=== PATIENT | male | born 1945 | race Caucasian/White ===

== ENCOUNTER → 2019-07-17 13:41 | Outpatient (BNVA) | payer MEDICARE, SELFPAY | PROVIDERS: Family Provider Nurse Practitioner Family; PCP Registered Nurse; Visit Provider Nurse Practitioner Family | DX: Z51.81 Encounter for therapeutic drug level monitoring (principal); Z79.01 Long term (current) use of anticoagulants; H11.32 Conjunctival hemorrhage, left eye | CPT/HCPCS: 85610 ==

== ENCOUNTER → 2019-09-08 11:30 | Outpatient (BNVA) | payer MEDICARE, SELFPAY | PROVIDERS: Family Provider Nurse Practitioner Family; PCP Registered Nurse; Visit Provider Registered Nurse | DX: R53.83 Other fatigue (principal); H55.09 Other forms of nystagmus; F17.210 Nicotine dependence, cigarettes, uncomplicated; E78.2 Mixed hyperlipidemia; I48.11 Longstanding persistent atrial fibrillation | CPT/HCPCS: 80053; 80061; 85025 ==

== ENCOUNTER 2019-09-12 12:20 | Outpatient (CLI) | payer MEDICARE, SELFPAY ==
--- NOTE | 2019-09-12 12:45 | USCV_ITS ---
Vinicio Martin Age: 73 Gender: M : 1945 Exam Date: 09/12/2019 12:17 Ordering Phys: Technologist: Michael Chinchilla [place] [facility] [place]ication: CAROTID STENOSIS Risk Factors: Previous Vascular Surgery: Right Brachial BP: / Left Brachial BP: / Right Left Velocity (cm/s) Spectral Plaque Velocity (cm/s) Spectral Plaque Syst/Diast Broadening Syst/Diast Broadening 100.40/9.40 Prox CCA 91.50 / 18.70 85.30/ 15.90 Mid CCA 122.80/ 20.80 64.00/ 13.80 Distal CCA 75.90 / 17.70 106.30/19.70 Prox ICA 155.00/ 44.70 89.60/ 25.10 Mid ICA 164.20/ 45.40 84.90/ 17.00 Distal ICA 152.80/ 37.30 119.90 ECA 109.20 1.05 ICA/CCA 1.34 Antegrade Vertebral Antegrade 60.10/ 11.70 cm/s 63.70/ 19.30 cm/s Tri Subclavian Tri 98.00 124.0 0 FINDINGS Moderate to heavy dense irregular plaques at the left bifurcation and the distal common carotid artery Mild to moderate heterogeneous plaques of the right bifurcation and proximal internal carotid artery Antegrade flow in the vertebral arteries bilaterally Normal Doppler flow velocities in the subclavian arteries bilaterally Intimal thickening and minimal plaques in the common carotid arteries bilaterally CONCLUSIONS Moderate to heavy dense irregular plaques at the left bifurcation and the distal common carotid arterywith velocity elevation consistent with 50-79% stenosis. Mild to moderate heterogeneous plaques of the right bifurcation and proximal internal carotid arterywith velocity elevation consistent with 16-49% stenosis. Compared to the study from 07/04/2018, there may not be a significant change . Dr Fly Ham MD [facility] (Electronically Signed) Final Date: 12 Sep 2019 18:02 S
== END 2019-09-12 12:21 | disposition home or self-care (01) ==
LOC: RAD 12:22
PROVIDERS: PCP Registered Nurse; Visit Provider Internal Medicine Cardiovascular Disease
DX: I65.23 Occlusion and stenosis of bilateral carotid arteries (principal)
CPT/HCPCS: 93880

== ENCOUNTER 2020-03-25 14:04 | Outpatient (CLI) | payer MEDICARE, SELFPAY ==
--- NOTE | 2020-03-25 14:16 | USCV_ITS ---
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 The following venous structures were evaluated: common femoral vein, profunda vein, proximal portion of the greater saphenous vein, superficial femoral vein, and the popliteal vein. In addition, the posterior tibial and peroneal trunk were evaluated. Serial compression, augmentation maneuvers, and spectral Doppler flow evaluation were performed. FINDINGS: Normal 2-D Doppler and augmentation and compressibility throughout the lower extremity venous structures. Additional imaging through the proximal calf veins also reveals no thrombus. Limited evaluation of the greater saphenous vein is patent with no thrombus. CONCLUSIONS No DVT left lower extremity. Dr. Lili Leonardo DO (Electronically Signed) Final Date: 25 March 2020 15:04 S
== END 2020-03-25 14:05 | disposition home or self-care (01) ==
LOC: RAD 14:10
PROVIDERS: PCP Registered Nurse; Visit Provider Registered Nurse
DX: I82.402 Acute embolism and thrombosis of unspecified deep veins of left lower extremity (principal)
CPT/HCPCS: 80053; 85025; 93971

== ENCOUNTER 2020-07-02 06:00 | Outpatient (CLI) | payer MEDICARE, SELFPAY | END 2020-07-02 06:01 | disposition home or self-care (01) | LOC: LAB 06-19 14:22 | PROVIDERS: PCP Registered Nurse; Visit Provider Internal Medicine Cardiovascular Disease | DX: R06.02 Shortness of breath (principal); I25.5 Ischemic cardiomyopathy; I50.33 Acute on chronic diastolic (congestive) heart failure | CPT/HCPCS: 80048; 80162; 83880 ==

== ENCOUNTER 2021-02-13 13:52 | Outpatient (CLI) | payer MEDICARE, SELFPAY ==
--- NOTE | 2021-02-13 14:15 | USCV_ITS ---
Vinicio Martin Age: 75 Gender: M : 1945 Exam Date: 02/13/2021 14:29 Ordering Phys: Fly Ham MD ([email or web address]) Technologist: Vera Albert Exam Location: [facility] – [place] Indication: ISCHEMIC CARDIOMYOPATHY BP: 130 / 70 HR: 67 Rhythm: Atrial fibrillation Technical Quality: Adequate MEASUREMENTS (Male / Female) Normal Values 2D ECHO LV Diastolic Diameter PLAX 6.0 cm 4.2 - 5.9 / 3.9 - 5.3 cm LV Systolic Diameter PLAX 4.4 cm IVS Diastolic Thickness 1.2 cm 0.6 - 1.0 / 0.6 - 0.9 cm IVS Systolic Thickness 1.7 cm LVPW Diastolic Thickness 1.9 cm 0.6 - 1.0 / 0.6 - 0.9 cm LVPW Systolic Thickness 2.3 cm LVOT Diameter 2.0 cm LV Ejection Fraction 2D Teich 51.1 % LV Ejection Fraction MOD 2C 54.9 % LV Ejection Fraction 2C AL 53.8 % LA Diameter 3.7 cm LA Width 5.1 cm LA Height 4.5 cm RA Width 4.6 cm RA Height 5.6 cm Aorta at Sinotubular Diameter 2.7 cm M-MODE Aortic Annulus Diameter 2.8 cm LA Ao Ratio MM 1.0 DOPPLER AV Peak Velocity 118.0 cm/s LVOT Peak Velocity 87.0 cm/s AV Area Cont Eq vti 2.2 cm squared AV Area Cont Eq pk 2.3 cm squared MV Peak Velocity 194.0 cm/s MV Area PHT 2.2 cm squared MV E' Velocity 176.0 cm/s TR Peak Velocity 239.3 cm/s TR Peak Gradient 22.9 mmHg TR Mean Velocity 182.0 cm/s TR Mean Gradient 14.6 mmHg TR Velocity Time Integral 56.5 cm TV Peak E Velocity 59.0 cm/s PV Peak Velocity 84.0 cm/s FINDINGS Left Ventricle Normal LV size with diffuse hypokinesia of the left ventricle.abnormal (paradoxical) septal motion consistent with postoperative status.Abnormal septal motion consistent with pacemaker. LV ejection fraction around 45%(visual) Right Ventricle Normal right ventricular systolic function. Normal right ventricular size. Right Atrium Moderately increased right atrial size. Pacemaker wire in the right atrium and right ventricle Left Atrium Moderately increased left atrial size. Mitral Valve Mechanical valve at the mitral position appears to be well- seated. Aortic Valve No gross abnormalities noted Tricuspid Valve Trace to mild tricuspid valve regurgitation. Pulmonic Valve Mild pulmonary valve regurgitation. Pericardium Normal pericardium without effusion. Aorta Normal ascending aorta dimension. CONCLUSIONS Normal LV size with diffuse hypokinesia of the left ventricle.abnormal (paradoxical) septal motion consistent with postoperative status. Abnormal septal motion consistent with pacemaker. Moderate biatrial enlargement. Pacemaker wire in the right atrium and right ventricle Mechanical valve at the mitral position appears to be well- seated. The mitral area by pressure half-time was 2.2 cm2 Trace to mild tricuspid valve regurgitation. There is no pericardial effusion. There are no intracardiac masses. Possibly normal PA pressure Mild pulmonary valve regurgitation. Compared to the study from a 01/12/2017, there is significant improvement in the LV ejection fraction from 30% to 45% Dr Fly Ham MD [facility] (Electronically Signed) Final Date: 13 February 2021 22:24 S
--- NOTE | 2021-02-13 15:00 | USCV_ITS ---
Vinicio Martin Age: 75 Gender: M : 1945 Exam Date: 02/13/2021 14:13 Ordering Phys: Fly Ham MD ([email or web address] Technologist: LINUS Exam Location: [facility] [place] Indication: DISORDER OF ARTERIES Risk Factors: Previous Vascular Surgery: Right Brachial BP: / Left Brachial BP: / Right Left Velocity (cm/s) Spectral Plaque Velocity (cm/s) Spectral Plaque Syst/Diast Broadening Syst/Diast Broadening 90.40/ 16.50 Prox CCA 87.10 / 11.00 83.80/ 20.90 Mid CCA 78.30 / 19.80 64.90/ 18.80 Distal CCA 88.20 / 18.70 103.40/39.30 Prox ICA 144.60/ 44.70 107.80/39.40 Mid ICA 161.70/ 32.90 101.20/28.90 Distal ICA 94.80 / 37.60 88.00 ECA 88.00 1.19 ICA/CCA 1.83 Antegrade Vertebral Antegrade 61.40/ 17.10 cm/s 81.20/ 26.50 cm/s Tri Subclavian Tri 243.3 262.0 0 0 FINDINGS Mild to moderate diffuse scattered plaques in the common carotid arteries on both sides. Moderate heterogeneous plaques at the right bifurcation and proximal internal carotid artery Moderate to heavy heterogeneous plaques of the left bifurcation and proximal internal carotid artery Antegrade flow in the vertebral arteries bilaterally. CONCLUSIONS Moderate to heavy heterogeneous plaques at the left bifurcation and proximal internal carotid artery with the Doppler features, suggestive of 50 to 69% stenosis. Moderate heterogeneous plaques at the right bifurcation and proximal internal carotid artery with the Doppler features, consistent with less than 50% stenosis. Elevated velocities in the subclavian arteries bilaterally, possibly related to tortuosity. Cannot exclude hemodynamically significant stenosis. Consider CT angiogram of the aortic arch vessels to better evaluate the subclavian arteries Compared to the study from a 09/12/2019, there is significant increase in the subclavian artery Doppler velocities . Dr Fly Ham MD [facility] (Electronically Signed) Final Date: 13 February 2021 22:08 S
== END 2021-02-13 13:53 | disposition home or self-care (01) ==
LOC: US 13:54
PROVIDERS: PCP Registered Nurse; Visit Provider Internal Medicine Cardiovascular Disease
DX: I25.5 Ischemic cardiomyopathy (principal); I77.9 Disorder of arteries and arterioles, unspecified; I65.23 Occlusion and stenosis of bilateral carotid arteries; Z95.0 Presence of cardiac pacemaker; I07.1 Rheumatic tricuspid insufficiency
CPT/HCPCS: 93306; 93880

== ENCOUNTER 2021-03-06 13:36 | Outpatient (CLI) | payer MEDICARE, SELFPAY ==
--- NOTE | 2021-03-06 14:00 | CT_ITS ---
WS: [id number] CTA THORACIC AORTA WITH AND WITHOUT CONTRAST. HISTORY: I65.23 - Occlusion and stenosis of bilateral carotid arteries. TECHNIQUE: CT imaging of the thorax is performed with and without contrast. After noncontrast imaging is performed, CT angiogram is performed during injection of Visipaque 320; 95 mL IV.. Sagittal and c oronal reconstructions, sagittal and coronal MIP imaging is submitted. All CT scans at [facility] use at least one of these dose optimization techniques: automated exposure control; mA and/or kV adjustment per patient size (includes targeted exams where dose is matched to clinical indication); or iterative reconstruction. DLP: 1572.57 mGycm COMPARISON: Ultrasound 02/13/2021 Good opacification of the thoracic aorta. There is heavy calcification throughout the thoracic aorta with no aneurysm. Calcified and soft plaque. No dissection. No ulcerating plaque. Moderate calcificat ion at the origin of the great vessels. There is dense calcified plaque at the innominate. The RIGHT subclavian artery is tortuous and does contain plaque but no high-grade stenosis. Calcified plaque an d intimal thickening at the origin and proximal LEFT subclavian artery. Stenosis is never greater deandre n 50%. Calcified plaque at the origin of the LEFT carotid artery with stenosis probably 50%. Mildly enlarged pulmonary artery. Severe enlargement of all 4 chambers of the heart. No pericardial o r pleural effusions. Marked emphysema. Benign granuloma RIGHT lower lobe. No mediastinal or hilar coni nopathy. There is mixed filling of the pulmonary arteries but this may be due to the phase of enhance ment. Small distal pulmonary emboli not excluded. Bilateral cortical thinning of each kidney. More significant atrophy of the LEFT kidney. Heavy calcif ication involving the proximal LEFT renal artery. Cholelithiasis without acute cholecystitis. CT/CT angio chest 62527 IMPRESSION: 1. Mixture of calcified and noncalcified plaque involving the subclavian arter ies bilaterally but the stenosis is not greater than 50%. 2. 50% stenosis involving the origin of the LEFT common carotid artery. 3. Extensive calcified plaque throughout the aorta. 4. Moderate atrophy LEFT kidney with heavy calcification in the proximal renal artery. 5. Emphysema. 6. Severe cardiomegaly.
[2021-03-06 14:12] LABS: Blood Urea Nitrogen 21 mg/dL (8-23)
[2021-03-06] MEDS: iodixanol 320 mg/mL 100mL Btl IV (14:33)
== END 2021-03-06 13:37 | disposition home or self-care (01) ==
PROVIDERS: PCP Registered Nurse; Visit Provider Internal Medicine Cardiovascular Disease
DX: I65.23 Occlusion and stenosis of bilateral carotid arteries (principal); I51.7 Cardiomegaly; J43.9 Emphysema, unspecified; N26.1 Atrophy of kidney (terminal); I70.0 Atherosclerosis of aorta
CPT/HCPCS: 71275; 82565; 84520; Q9967

== ENCOUNTER → 2021-11-18 14:05 | Outpatient (BNVA) | payer MEDICARE, SELFPAY | PROVIDERS: PCP Registered Nurse; Visit Provider Registered Nurse | DX: M54.32 Sciatica, left side (principal); R10.30 Lower abdominal pain, unspecified | CPT/HCPCS: 81000 ==

== ENCOUNTER 2021-11-25 15:27 | Outpatient (CLI) | payer MEDICARE, SELFPAY ==
--- NOTE | 2021-11-25 09:49 | MR_ITS ---
WS: [id number] MRI LUMBAR SPINE NONCONTRAST TECHNIQUE: Sagittal T1, T2 and STIR imaging. Axial T1 imaging. Images are limited by motion artifact. Patient difficulty with holding still. Axial T2 imaging was not obtained. CLINICAL INFORMATION: M54.30 - Sciatica, unspecified side COMPARISON: CT 2016 FINDINGS: Mild lumbar curve. No acute compression. Mild central canal stenosis in the cervical spine supply specialist imaging at C3-C5. Prior interbody fusion C6-C 7. RIGHT foraminal protrusion T2-T3 partially evaluated on the supply specialist imaging. L1-L2: Mild annular bulging. Mild central canal stenosis. Narrowing of the RIGHT subarticular recess. Mild facet arthropathy. Moderate RIGHT foraminal narrowing. L2-L3: Mild annular bulging. Mild facet arthropathy. Mild central canal stenosis. LEFT foraminal prot rusion with mild LEFT foraminal narrowing. L3-L4: Mild disc osteophytic ridging. Moderate central canal stenosis with prominent epidural fat. Na rrowing of the cauda equina with moderate facet arthropathy. Mild bilateral foraminal narrowing. L4-L5: Disc herniation posterior to the L4 vertebral body eccentric to the LEFT. LEFT foraminal protr usion impinges the exiting L4 nerve root with severe LEFT foraminal narrowing. RIGHT foramen is paten t. Moderate facet arthropathy. L5-S1: Mild annular bulging. Moderate facet arthropathy. Spinal canal and foramen are patent. Small R IGHT L5-S1 effusion. Visualized pelvic bony structures: Normal. Paravertebral soft tissues: Normal. MR/MR lumbar spine wo con* [id number] IMPRESSION: Incomplete examination described above. Images limited due to motio n artifact. 1. Mild lumbar curve. No acute compression. 2. Moderate central canal stenosis L3-L4 due to disc bulging with facet arthro damian and prominent epidural fat. Narrowing of the cauda equina at this level. 3. Moderate central canal stenosis L4-L5 and Mild central canal stenosis L2-L3 due to mild disc bulging with facet arthropathy ligamentum flavum hypertrophy. 4. Severe LEFT L4-L5 foraminal narrowing with LEFT foraminal protrusion. Disc herniation extends posterior to the L4 vertebral body eccentric to the LEFT. 5. RIGHT foraminal protrusion L1-L2 with moderate RIGHT foraminal narrowing. 6. Small LEFT foraminal protrusion L2-L3 with mild LEFT foraminal narrowing. 7. Mild central canal stenosis in the cervical spine supply specialist imaging at C3-C5. P rior interbody fusion C6-C7. RIGHT foraminal protrusion T2-T3 partially evaluat ed on the supply specialist imaging. This can be further evaluated with cervical spine MRI.
--- NOTE | 2021-11-25 16:00 | MR_ITS ---
WS: [email or web address] MRI LUMBAR SPINE NONCONTRAST TECHNIQUE: Sagittal T1, T2 and STIR imaging. Axial T1 imaging. Images are limited by motion artifact. Patient difficulty with holding still. Axial T2 imaging was not obtained. CLINICAL INFORMATION: M54.30 - Sciatica, unspecified side COMPARISON: CT 2016 FINDINGS: Mild lumbar curve. No acute compression. Mild central canal stenosis in the cervical spine resident associate imaging at C3-C5. Prior interbody fusion C6-C 7. RIGHT foraminal protrusion T2-T3 partially evaluated on the resident associate imaging. L1-L2: Mild annular bulging. Mild central canal stenosis. Narrowing of the RIGHT subarticular recess. Mild facet arthropathy. Moderate RIGHT foraminal narrowing. L2-L3: Mild annular bulging. Mild facet arthropathy. Mild central canal stenosis. LEFT foraminal prot rusion with mild LEFT foraminal narrowing. L3-L4: Mild disc osteophytic ridging. Moderate central canal stenosis with prominent epidural fat. Na rrowing of the cauda equina with moderate facet arthropathy. Mild bilateral foraminal narrowing. L4-L5: Disc herniation posterior to the L4 vertebral body eccentric to the LEFT. LEFT foraminal protr usion impinges the exiting L4 nerve root with severe LEFT foraminal narrowing. RIGHT foramen is paten t. Moderate facet arthropathy. L5-S1: Mild annular bulging. Moderate facet arthropathy. Spinal canal and foramen are patent. Small R IGHT L5-S1 effusion. Visualized pelvic bony structures: Normal. Paravertebral soft tissues: Normal.
== END 2021-11-25 15:28 | disposition home or self-care (01) ==
LOC: RAD 15:28
PROVIDERS: PCP Registered Nurse; Visit Provider Nurse Practitioner Family
DX: M54.30 Sciatica, unspecified side (principal); M48.061 Spinal stenosis, lumbar region without neurogenic claudication; M51.26 Other intervertebral disc displacement, lumbar region; M48.02 Spinal stenosis, cervical region
CPT/HCPCS: 72148; 72149; A9577

== ENCOUNTER → 2021-12-11 08:59 | Outpatient (BNVA) | payer MEDICARE, SELFPAY | PROVIDERS: PCP Registered Nurse; Visit Provider Orthopaedic Surgery | DX: M48.062 Spinal stenosis, lumbar region with neurogenic claudication (principal); M81.0 Age-related osteoporosis without current pathological fracture; M47.816 Spondylosis without myelopathy or radiculopathy, lumbar region | CPT/HCPCS: 72110; 99204 ==

== ENCOUNTER → 2022-01-06 08:51 | Outpatient (BNVA) | payer MEDICARE, SELFPAY | PROVIDERS: PCP Registered Nurse; Visit Provider Anesthesiology Pain Medicine | DX: M48.062 Spinal stenosis, lumbar region with neurogenic claudication (principal); M51.26 Other intervertebral disc displacement, lumbar region; M54.32 Sciatica, left side; M47.816 Spondylosis without myelopathy or radiculopathy, lumbar region; M79.604 Pain in right leg; M79.605 Pain in left leg; F17.200 Nicotine dependence, unspecified, uncomplicated | CPT/HCPCS: 99204 ==

== ENCOUNTER → 2022-01-08 09:39 | Outpatient (BNVA) | payer MEDICARE, SELFPAY | PROVIDERS: PCP Registered Nurse; Visit Provider Nurse Practitioner Family | DX: I25.5 Ischemic cardiomyopathy (principal); I48.11 Longstanding persistent atrial fibrillation; J43.9 Emphysema, unspecified | CPT/HCPCS: 80053; 83880; 85025 ==

== ENCOUNTER → 2022-01-28 11:45 | Outpatient (BNVA) | payer MEDICARE, SELFPAY | PROVIDERS: PCP Registered Nurse; Visit Provider Internal Medicine Cardiovascular Disease | DX: I65.23 Occlusion and stenosis of bilateral carotid arteries (principal); R06.02 Shortness of breath; I25.5 Ischemic cardiomyopathy; F17.200 Nicotine dependence, unspecified, uncomplicated | CPT/HCPCS: 36415; 80048; 83880; 99214 ==

== ENCOUNTER → 2022-02-11 10:51 | Outpatient (BNVA) | payer MEDICARE, SELFPAY | PROVIDERS: PCP Registered Nurse; Visit Provider Nurse Practitioner Family | DX: I25.5 Ischemic cardiomyopathy (principal); F17.200 Nicotine dependence, unspecified, uncomplicated; I10 Essential (primary) hypertension | CPT/HCPCS: 99214 ==

== ENCOUNTER 2022-03-19 14:56 | Outpatient (CLI) | payer MEDICARE, SELFPAY ==
--- NOTE | 2022-03-19 15:15 | USCV_ITS ---
Vinicio Martin Age: 76 Gender: M : 1945 Exam Date: 03/19/2022 15:24 Ordering Phys: Fly Ham MD ([email or web address] [place]) Technologist: Michael Chinchilla [place]am [place] [facility] [place]: carotid occlusion Risk Factors: Previous Vascular Surgery: Right Brachial BP: / Left Brachial BP: / Right Left Velocity (cm/s) Spectral Plaque Velocity (cm/s) Spectral Plaque Syst/Diast Broadening Syst/Diast Broadening 95.50/ 15.80 Prox CCA 59.70 / 11.20 60.10/ 13.10 Mid CCA 63.60 / 11.70 62.40/ 12.50 Distal CCA 82.00 / 23.10 149.10/40.40 Prox ICA 172.90/ 40.65 144.50/46.60 Mid ICA 155.10/ 28.90 80.80/ 24.90 Distal ICA 132.30/ 40.80 94.00 ECA 79.50 2.41 ICA/CCA 2.44 Antegrade Vertebral Antegrade 57.50/ 9.30 cm/s 66.40/ 16.40 cm/s Tri Subclavian Tri 153.8 70.70 0 FINDINGS comp 02/06 CONCLUSIONS Right ICA stenosis 50-69% progressed compared to previous.mild atheromatous plaque right carotid bulb/ICA. Left ICA stenosis 50-69% progressed. Moderate atheromatous plaque left carotid bulb/ICA. Normal antegrade Doppler flow noted in the right vertebral artery. Normal antegrade Doppler flow noted in the left vertebral artery. Devon Mann MD (Electronically Signed) Final Date: 19 March 2022 17:08 S
== END 2022-03-19 14:57 | disposition home or self-care (01) ==
LOC: RAD 14:56
PROVIDERS: PCP Registered Nurse; Visit Provider Internal Medicine Cardiovascular Disease
DX: I65.23 Occlusion and stenosis of bilateral carotid arteries (principal); I77.9 Disorder of arteries and arterioles, unspecified
CPT/HCPCS: 93880

== ENCOUNTER → 2022-05-14 12:58 | Outpatient (BNVA) | payer MEDICARE, SELFPAY | PROVIDERS: PCP Registered Nurse; Visit Provider Nurse Practitioner Family | DX: I25.5 Ischemic cardiomyopathy (principal); I48.11 Longstanding persistent atrial fibrillation; Z79.01 Long term (current) use of anticoagulants; I10 Essential (primary) hypertension; I65.23 Occlusion and stenosis of bilateral carotid arteries; F17.200 Nicotine dependence, unspecified, uncomplicated | CPT/HCPCS: 36415; 80048; 83880; 99214 ==

== ENCOUNTER → 2022-11-19 11:28 | Outpatient (BNVA) | payer MEDICARE, SELFPAY | PROVIDERS: PCP Registered Nurse; Visit Provider Internal Medicine Cardiovascular Disease | DX: I25.5 Ischemic cardiomyopathy (principal); Z95.3 Presence of xenogenic heart valve; I48.11 Longstanding persistent atrial fibrillation; I10 Essential (primary) hypertension; E78.2 Mixed hyperlipidemia; I65.23 Occlusion and stenosis of bilateral carotid arteries; F17.200 Nicotine dependence, unspecified, uncomplicated; Z79.01 Long term (current) use of anticoagulants | CPT/HCPCS: 99214 ==

== ENCOUNTER → 2023-06-08 09:51 | Outpatient (BNVA) | payer MEDICARE, SELFPAY | PROVIDERS: PCP Registered Nurse; Visit Provider Nurse Practitioner Family | DX: I10 Essential (primary) hypertension (principal); I48.11 Longstanding persistent atrial fibrillation; Z95.3 Presence of xenogenic heart valve; F17.200 Nicotine dependence, unspecified, uncomplicated; Z79.01 Long term (current) use of anticoagulants | CPT/HCPCS: 99214 ==

== ENCOUNTER → 2024-01-10 14:28 | Outpatient (BNVA) | payer MEDICARE, SELFPAY | PROVIDERS: PCP Registered Nurse; Visit Provider Registered Nurse | DX: E78.5 Hyperlipidemia, unspecified (principal); I10 Essential (primary) hypertension | CPT/HCPCS: 80053; 80061; 85025 ==

== ENCOUNTER → 2024-01-20 14:15 | Outpatient (BNVA) | payer MEDICARE, SELFPAY | PROVIDERS: PCP Registered Nurse; Visit Provider Internal Medicine Cardiovascular Disease | DX: I25.5 Ischemic cardiomyopathy (principal); I65.23 Occlusion and stenosis of bilateral carotid arteries; E78.2 Mixed hyperlipidemia; I10 Essential (primary) hypertension; I48.11 Longstanding persistent atrial fibrillation; F17.210 Nicotine dependence, cigarettes, uncomplicated; Z95.3 Presence of xenogenic heart valve; Z79.01 Long term (current) use of anticoagulants | CPT/HCPCS: 99214 ==

== ENCOUNTER 2024-02-23 06:15 | Outpatient (CLI) | payer MEDICARE, SELFPAY ==
--- NOTE | 2024-02-23 06:15 | USCV_ITS ---
Vinicio Martin Age: 78 Gender: M : 1945 Exam Date: 02/23/2024 06:39 Ordering Phys: Fly Ham MD ([email or web address]) Technologist: [place]am [place] [facility] [place] Indication: mv pros BP: 130 / 80 HR: 74 Rhythm: Sinus Technical Quality: MEASUREMENTS (Male / Female) Normal Values 2D ECHO LVOT Diameter 2.3 cm LV Ejection Fraction MOD 4C 45.3 % LV Ejection Fraction MOD 2C 39.6 % LV Ejection Fraction 2C AL 38.3 % LA Diameter 6.0 cm RA Systolic Volume 4C AL 205.7 ml RA Systolic Volume 4C MOD 205.8 ml Aorta at Sinotubular Diameter 2.9 cm IVC Diameter 3.1 cm DOPPLER AV Peak Velocity 103.0 cm/s LVOT Peak Velocity 53.0 cm/s AV Area Cont Eq vti 2.8 cm squared AV Area Cont Eq pk 2.2 cm squared MV Peak Velocity 221.0 cm/s MV Area PHT 2.6 cm squared Mitral E to A Ratio 3.5 TV Peak Velocity 328.0 cm/s TR Peak Velocity 460.0 cm/s TR Peak Gradient 84.6 mmHg TV Peak E Velocity 131.0 cm/s Right Atrial Pressure 3.0 mmHg Pulmonary Artery Systolic Pressu 87.6 mmHg PV Peak Velocity 102.0 cm/s FINDINGS Left Ventricle Mild to moderate diffuse hypokinesia of the left ventricle with an ejection fraction of 40%. 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 Mitral valve area by pressure half-time was calculated to be 2.55 cm squared Aortic Valve Mild aortic valve regurgitation. Tricuspid Valve Mild tricuspid regurgitation. Severe pulm hypertension with an estimated pulmonary artery peak systolic pressure of 88 mmHg Pulmonic Valve Moderate pulmonary valve regurgitation. Pericardium Normal pericardium without effusion. Aorta Normal ascending aorta dimension. IVC Dilated IVC with decreased respiratory variation. CONCLUSIONS Mild to moderate diffuse hypokinesia of the left ventricle with an ejection fraction of 40%. Normal RV size with a slightly diminished ejection fraction. Moderate dilated left atrium. Mildly dilated right atrium. 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 Mitral valve area by pressure half-time was calculated to be 2.55 cm squared. Mild aortic valve regurgitation. Mild tricuspid regurgitation. Severe pulm hypertension with an estimated pulmonary artery peak systolic pressure of 88 mmHg. Moderate pulmonary valve regurgitation. There is no pericardial effusion. There are no intracardiac masses. Compared to the study from 02/13/2021 the severe pulmonary hypertension appears to be new. Because of the technical difficulties, this could be misleading. The tricuspid Doppler study need to be repeated Dr Fly Ham MD [facility] (Electronically Signed) Final Date: 27 February 2024 13:27 S
--- NOTE | 2024-02-23 06:31 | USCV_ITS ---
Vinicio Martin Age: 78 Gender: M : 1945 Exam Date: 02/23/2024 06:53 Ordering Phys: Fly Ham MD ([email or web address]) Technologist: Exam Location: [facility] – [place] Indication: cca disease Risk Factors: Previous Vascular Surgery: Right Brachial BP: / Left Brachial BP: / Right Left Velocity (cm/s) Spectral Plaque Velocity (cm/s) Spectral Plaque Syst/Diast Broadening Syst/Diast Broadening 51.60/ 10.20 Prox CCA 101.30/ 29.20 61.90/ 11.50 Mid CCA 97.70 / 29.10 79.70/ 19.20 Hetro Distal CCA 80.90 / 24.70 Hetro 142.20/28.30 Hetro Prox ICA 79.10 / 15.50 Hetro 100.60/15.10 Hetro Mid ICA 76.00 / 14.00 Hetro 85.20/ 19.50 Distal ICA 164.10/ 34.80 130.50 ECA 113.20 1.80 ICA/CCA 2.00 Antegrade Vertebral Antegrade 45.50/ 4.90 cm/s 76.50/ 12.90 cm/s Bi Subclavian Bi 140.0 170.7 0 0 FINDINGS Moderate dense irregular plaques at the bifurcation on the right side and proximal internal carotid artery Mild to moderate plaques of the left bifurcation proximal internal carotid artery. Antegrade flow in the vertebral arteries bilaterally. Normal flow velocities in the external carotid, subclavian and vertebral arteries bilaterally CONCLUSIONS Moderate dense irregular plaques at the bifurcation on the right side and proximal internal carotid artery with the Doppler features suggesting 50 to 69% stenosis Mild to moderate plaques at the left bifurcation proximal internal carotid artery with Doppler features suggesting less than 50% stenosis. Compared to the study from 03/19/2022 the stenosis on the left side appears to be less severe . Dr Fly Ham MD [facility] (Electronically Signed) Final Date: 27 February 2024 16:37 S
== END 2024-02-23 06:16 | disposition home or self-care (01) ==
PROVIDERS: PCP Registered Nurse; Visit Provider Internal Medicine Cardiovascular Disease
DX: I65.23 Occlusion and stenosis of bilateral carotid arteries (principal); I27.0 Primary pulmonary hypertension; I37.1 Nonrheumatic pulmonary valve insufficiency; I51.7 Cardiomegaly; R06.09 Other forms of dyspnea; Z95.2 Presence of prosthetic heart valve
CPT/HCPCS: 93306; 93880

== ENCOUNTER → 2024-04-04 11:05 | Outpatient (BNVA) | payer MEDICARE, SELFPAY | PROVIDERS: PCP Registered Nurse; Visit Provider Registered Nurse | DX: E11.9 Type 2 diabetes mellitus without complications (principal); I10 Essential (primary) hypertension | CPT/HCPCS: 80048; 80061; 85025 ==

== ENCOUNTER → 2024-08-22 09:57 | Outpatient (BNVA) | payer MEDICARE, SELFPAY | PROVIDERS: PCP Registered Nurse; Visit Provider Internal Medicine Cardiovascular Disease | DX: I48.11 Longstanding persistent atrial fibrillation (principal); Z79.01 Long term (current) use of anticoagulants; I65.23 Occlusion and stenosis of bilateral carotid arteries; I25.5 Ischemic cardiomyopathy; E78.2 Mixed hyperlipidemia; I10 Essential (primary) hypertension; I27.20 Pulmonary hypertension, unspecified; Z95.2 Presence of prosthetic heart valve; F17.210 Nicotine dependence, cigarettes, uncomplicated; R06.09 Other forms of dyspnea | CPT/HCPCS: 99214 ==

== ENCOUNTER → 2024-10-31 08:51 | Outpatient (BNVA) | payer MEDICARE, SELFPAY | PROVIDERS: PCP Registered Nurse; Visit Provider Registered Nurse | DX: I48.11 Longstanding persistent atrial fibrillation (principal) | CPT/HCPCS: 85610 ==

== ENCOUNTER 2025-02-19 13:04 | Outpatient (CLI) | payer MEDICARE, SELFPAY ==
--- NOTE | 2025-02-19 12:45 | USCV_ITS ---
Vinicio Martin Age: 79 Gender: M : 1945 Exam Date: 02/19/2025 13:08 Ordering Phys: Fly Ham MD ([email or web address]/[facility]) Technologist: EMANUEL [place] [facility] [place]: stenosis Risk Factors: Previous Vascular Surgery: Right Brachial BP: / Left Brachial BP: / Right Left Velocity (cm/s) Spectral Plaque Velocity (cm/s) Spectral Plaque Syst/Diast Broadening Syst/Diast Broadening 71.10/ 11.50 Prox CCA 75.80 / 14.30 75.00/ 15.40 Mid CCA 97.50 / 15.00 64.50/ 7.60 Distal CCA 90.50 / 20.70 141.00/35.80 Prox ICA 174.90/ 41.00 30.10/ 5.90 Mid ICA 91.00 / 13.10 63.30/ 13.90 Distal ICA 83.90 / 27.30 62.30 ECA 59.60 2.20 ICA/CCA 1.90 Antegrade Vertebral Antegrade 33.30/ 6.50 cm/s 72.70/ 16.70 cm/s Tri Subclavian Tri 86.30 198.9 0 FINDINGS comp 02/23/24 CONCLUSIONS Right ICA stenosis 50-69% is stable. Moderate atheromatous plaque right carotid bulb/ICA. Left ICA stenosis 50-69% has progressed. Moderate calcified atheromatous plaque left carotid bulb/ICA. Normal antegrade Doppler flow noted in the right vertebral artery. Normal antegrade Doppler flow noted in the left vertebral artery. Devon Mann MD (Electronically Signed) Final Date: 19 February 2025 13:38 S
--- NOTE | 2025-02-19 13:30 | USCV_ITS ---
Vinicio Martin Age: 79 Gender: M : 1945 Exam Date: 02/19/2025 13:37 Ordering Phys: Fly Ham MD ([email or web address]) Technologist: [place] [facility] [place]: mv pros BP: 125 / 70 HR: 82 Rhythm: Sinus Technical Quality: Adequate MEASUREMENTS (Male / Female) Normal Values 2D ECHO LV Diastolic Diameter PLAX 4.5 cm 4.2 - 5.9 / 3.9 - 5.3 cm IVS Diastolic Thickness 1.3 cm 0.6 - 1.0 / 0.6 - 0.9 cm IVS Systolic Thickness 1.8 cm LVPW Diastolic Thickness 1.4 cm 0.6 - 1.0 / 0.6 - 0.9 cm LVPW Systolic Thickness 1.9 cm LVOT Diameter 2.1 cm LV Ejection Fraction 2D Teich 56.9 % LV Ejection Fraction MOD 4C 61.5 % LA Diameter 5.4 cm RA Systolic Volume 4C AL 110.1 ml RA Systolic Volume 4C MOD 104.6 ml Aorta at Sinotubular Diameter 3.1 cm IVC Diameter 2.9 cm DOPPLER AV Peak Velocity 99.0 cm/s LVOT Peak Velocity 68.0 cm/s AV Area Cont Eq vti 2.3 cm squared AV Area Cont Eq pk 2.3 cm squared MV Peak Velocity 165.0 cm/s TV Peak Velocity 289.0 cm/s TR Peak Velocity 302.0 cm/s TR Peak Gradient 36.5 mmHg TV Peak E Velocity 102.0 cm/s PV Peak Velocity 88.0 cm/s FINDINGS Left Ventricle Diffuse hypokinesis of the left ventricle with ejection fraction of 40-45 %visual) Right Ventricle Possibly of normal size with slightly diminished ejection fraction Right Atrium Moderately increased right atrial size. Left Atrium Severely increased left atrial size. IA Septum Appears to be intact Mitral Valve The prosthetic valve at the mitral position appears to be well- seated. The mean gradient across the valve is 4.26 mmHg and the peak gradient of 11.7 mmHg Aortic Valve Trace aortic valve regurgitation. Tricuspid Valve Mild tricuspid valve regurgitation. Estimated pulmonary artery peak systolic pressure 40 mmHg Pulmonic Valve Moderate pulmonary valve regurgitation. Pericardium No pericardial effusion. Aorta Normal aortic annulus size. IVC Normal inferior vena cava. CONCLUSIONS Diffuse hypokinesis of the left ventricle with ejection fraction of 40-45% (visual). Severely increased left atrial size. Moderately increased right atrial size. Right ventricle, possibly normal size with a slightly diminished ejection fraction The prosthetic valve at the mitral position appears to be well- seated. The mean gradient across the valve is 4.26 mmHg and the peak gradient of 11.7 mmHg. Trace aortic valve regurgitation. Mild tricuspid valve regurgitation. Estimated pulmonary artery peak systolic pressure 40 mmHg. Moderate pulmonary valve regurgitation. There is no pericardial effusion. There are no intracardiac masses. Compared to the previous study from 02/23/2024, the PA pressure based on the TR jet appears to have significantly decreased Dr Fly Ham MD [facility] (Electronically Signed) Final Date: 23 February 2025 09:05 S
== END 2025-02-19 13:05 | disposition home or self-care (01) ==
LOC: RAD 13:04
PROVIDERS: PCP Registered Nurse; Visit Provider Internal Medicine Cardiovascular Disease
DX: I65.23 Occlusion and stenosis of bilateral carotid arteries (principal); R06.09 Other forms of dyspnea; I51.89 Other ill-defined heart diseases; I51.7 Cardiomegaly; Z95.4 Presence of other heart-valve replacement; I07.1 Rheumatic tricuspid insufficiency; I37.1 Nonrheumatic pulmonary valve insufficiency; R93.1 Abnormal findings on diagnostic imaging of heart and coronary circulation
CPT/HCPCS: 93306; 93880

== ENCOUNTER → 2025-03-19 11:10 | Outpatient (BNVA) | payer MEDICARE, SELFPAY | PROVIDERS: PCP Registered Nurse; Visit Provider Nurse Practitioner Family | DX: I42.9 Cardiomyopathy, unspecified (principal); Z95.3 Presence of xenogenic heart valve; F17.210 Nicotine dependence, cigarettes, uncomplicated; I48.11 Longstanding persistent atrial fibrillation; I10 Essential (primary) hypertension; E78.5 Hyperlipidemia, unspecified; I65.23 Occlusion and stenosis of bilateral carotid arteries | CPT/HCPCS: 99214 ==